=== PATIENT | male | born 1985 | race Caucasian/White ===

== ENCOUNTER → 2019-03-18 13:38 | Outpatient (CLI) | payer BC, SELFPAY ==
--- NOTE | ~2019-03-18 | CT_ITS ---
EXAMINATION: CT abdomen pelvis wo con EXAM DATE: 03/18/2019 13:56 INDICATION: Right lower quadrant pain. TECHNIQUE: Spiral CT of the abdomen and pelvis was performed without contrast. Axial, coronal and s agittal images were reviewed. The dose-length product (DLP) for this examination was 447.82 mGy-cm. The exposure was tailored according to patient size (auto mA exposure control), and iterative recons truction (ASIR) was used as additional dose reduction technique. There is no prior study for compari son. FINDINGS: The liver, spleen, adrenal glands and pancreas are unremarkable. There are cholecystectomy clips. There is no nephrolithiasis or hydronephrosis. There are numerous bilateral renal cysts, pat ient may have autosomal dominant polycystic kidney disease. The prostate is unremarkable. The bladd er is unremarkable. There is no retroperitoneal or pelvic lymphadenopathy. The appendix is normal. There is moderate-sized gastroesophageal hiatal hernia. There is expected a mount of colonic stool. No free intraperitoneal gas. The heart is normal in size. There are no p ericardial or pleural effusions. The lung bases are unremarkable. The bones are unremarkable. IMPRESSION: 1. Moderate colonic stool. 2. Polycystic kidney suspicious for autosomal dominant polycystic kidney disease. Reviewed, dictated and finalized at location B. [employer]ACH[employer] IMPRESSION: 1. Moderate colonic stool. 2. Polycystic kidney suspicious for autosomal dominant polycystic kidney disea se.
== END ==
PROVIDERS: Visit Provider Surgery
DX: R10.31 Right lower quadrant pain (principal); R10.32 Left lower quadrant pain
CPT/HCPCS: 74176

== ENCOUNTER 2019-07-05 03:53 | Emergency (ER) | payer OTHER, SELFPAY ==
--- NOTE | ~2019-07-05 | CT_ITS ---
EXAMINATION: CT abdomen pelvis wo con DATE: 07/05/2019 04:39 INDICATION: Abdominal pain TECHNIQUE: Computed tomography (CT) of the abdomen and pelvis was performed without intravenous contr ast. Automated exposure control and iterative reconstruction technique were employed. The dose-length product was 293.56 mGy-cm. COMPARISON: 03/18/2019 and 10/24/2015 FINDINGS: Mild chronic scarring the right middle lobe adjacent to a few old rib fracture deformities. Likely be nign chronic 6 mm pleural-based nodule at the posterolateral right lower lobe without significant karel nge since 2016. Heart size is normal. No pericardial or pleural effusion. Cholecystectomy clips the g allbladder fossa. Liver, spleen, pancreas and bilateral adrenal glands are normal. No significant karel nge in numerous bilateral renal cysts, several proteinaceous/hemorrhagic with increased attenuation l ikely related to autosomal dominant polycystic kidney disease. There are a few small stones measuring up to 2-3 mm in both kidneys, 4 on the right and one on the left.. No stones seen along the course o f the ureters. No hydronephrosis. Bowels including the appendix are normal. Bladder is normal. No jarad e intraperitoneal gas or fluid. No pathologically enlarged abdominal or pelvic lymphadenopathy. Mild lumbar levocurvature. Bones are otherwise unremarkable. IMPRESSION: 1. Multiple bilateral renal cysts including a proteinaceous/hemorrhagic cyst consistent with autosoma l dominant polycystic kidney disease. 2. A few small bilateral nonobstructing renal calculi. Reviewed, dictated and finalized at location A. IMPRESSION: 1. Multiple bilateral renal cysts including a proteinaceous/hemorrhagic cyst co nsistent with autosomal dominant polycystic kidney disease. 2. A few small bilateral nonobstructing renal calculi.
[2019-07-05 04:02] VITALS: BP 159/93; PULSE 83; RESP 18; O2SAT 97
--- NOTE | 2019-07-05 04:03 | ED.ABDPAIN ---
HPI - Abdominal Pain General Chief Complaint: Abdominal Pain Stated Complaint: Abdoninal Pain Time Seen by Provider: 07/05/19 03:56 Source: patient Mode of arrival: ambulatory Limitations: no limitations History of Present Illness HPI narrative: This is a 34-year-old male presents the emergency department with some abdominal pain suprapubic with some flank pain left greater than right, with no nausea vomiting no fever chills no diarrhea constipation. The patient has seen surgeon for groin strain, and has a history of kidney stones. Currently there is no shortness of breath no chest pain no hematuria. Also in his past medical history has a history of drug addiction in remission, history of polycystic kidney disease and hepatitis-C. MD elicited complaint: abdominal pain and flank pain Pertinent past history: none Onset (ago): day(s) Pain Consistency: intermittent Location: L flank and suprapubic Severity: moderate Pain scale (0-10): 6 Quality: dull Radiation: LLQ Migration to: suprapubic and L flank Exacerbating factors: nothing Relieving factors: nothing Associated symptoms: denies other symptoms Related Data Home Medications Medication Instructions Recorded Confirmed armodafinil [Nuvigil] 200 mg PO DAILY 01/18/19 07/05/19 buprenorphine-naloxone [Suboxone] 8 film BUCCAL BID 01/18/19 07/05/19 clonidine HCl 0.1 mg PO DAILY 01/18/19 07/05/19 hydroxyzine pamoate 25 mg PO DAILY 01/18/19 07/05/19 lisinopril 40 mg PO DAILY 01/18/19 07/05/19 metoprolol tartrate 25 mg PO DAILY 01/18/19 07/05/19 prazosin 1 mg PO DAILY 01/18/19 07/05/19 testosterone cypionate 100 mg SUBCUT WEEKLY 01/18/19 07/05/19 Allergies Allergy/AdvReac Type Severity Reaction Status Date / Time tramadol Allergy seizure Verified 03/03/19 13:47 Review of Systems Review of Systems: All systems reviewed & are unremarkable except as noted in HPI and below PMFSH Past Medical History Medical History Drug addiction in remission Hepatitis C History of kidney stones HTN (hypertension) Pectus excavatum Polycystic kidney disease Surgical History Surgical History Hx laparoscopic cholecystectomy No history of previous surgery Family History Family History Father , father of septic complications of bowel rupture No problems noted. Social History Social History Smoking packs per day: 0.5 Smoking cigarettes per day: 10.0 Years smoked: 12 Smoking pack-years: 6.00 Substance use: former Other substance usage details: Angel used to use intravenous heroin. This is how he got his hepatitis Last use: Current loose on Suboxone. Never got treatment for hepatitis Exam Const: General: no acute distress and alert Orientation/consciousness: patient oriented x3 HENMT: Head: normal to inspection Eyes: Conjunctivae: conjunctivae normal Pupils: Equal, round and reactive pupils present EOM: EOMs intact bilaterally Neck: Neck: normal visual inspection and no lymphadenopathy Chest: Chest palpation & inspection: normal inspection of the chest Resp: Effort & Inspection: normal respiratory effort Auscultation: clear to auscultation bilaterally Cardio: Rate: regular rate Rhythm: regular rhythm GI: GI Palp: Yes Tenderness to palpation present (GI) ( Suprapubic area) Percussion: Yes normal to percussion Auscultation: normal bowel sounds Urinary Catheter: Urinary Catheter: urine cloudy and urine dark Back/Spine/Pelvis: Back: CVA tenderness Skin: General skin exam: normal color Rashes: no rashes Neuro: General: patient oriented x3, moves all extremities, no meningeal signs and no focal motor deficits Extrem: General: normal to inspection Psych: Mental Status: mental status grossly normal Cours
[2019-07-05] MEDS: SODIUM CHLORIDE 0.9% IV 1,000 ML 999 ML IV CONT (04:20)
[2019-07-05] MEDS: KETOROLAC 30 MG/ML VIAL (*BKC) IV PUSH (04:20)
[2019-07-05 04:21] LABS: Hematocrit 43.6 % (40.0-54.0); Hemoglobin 14.9 g/dL (14.0-18.0); Mean Corpuscular HGB Conc 34.2 g/dL (32.0-36.0); Mean Corpuscular Hemoglobin 29.6 pg (27.0-31.0); Mean Corpuscular Volume 86.5 fL (78.0-102.0); Mean Platelet Volume 9.3 fl (8.7-11.0); Platelet Count Result 223 K/mm3 (150-420); Red Blood Count 5.04 M/mm3 (4.70-6.10); Red Cell Distribution Width 13.1 % (11.6-14.4); White Blood Count 7.7 K/mm3 (4.8-10.8)
[2019-07-05 04:22] LABS: Add Urine Microscopic? NO; Appearance Urine Clear (Clear); Bilirubin Urine Negative (Negative); Blood Urine Negative (Negative); Color Urine Yellow (Yellow); Glucose Urine UA Negative (Negative); Ketones Urine Negative (Negative); Leukocyte Esterase Ur Negative (Negative); Nitrate Urine Negative (Negative); Protein Urine Negative (Negative); Specific Grav Ur >= 1.030 (1.010-1.020); Urobilinogen Urine 0.2 mg/dL (0.2-1.0); pH Urine 5.5 (5.0-8.0)
[2019-07-05 04:35] LABS: Alanine Aminotransferase 84 U/L (16-63); Albumin Level 4.2 g/dL (3.4-5.0); Alkaline Phosphatase 65 U/L (46-116); Anion Gap 14.6 mmol/L (7-16); Aspartate Amino Transferase 46 U/L (15-37); Bilirubin,Total 0.8 mg/dL (0.00-1.00); Blood Urea Nitrogen 21 mg/dL (7-18); Calcium 8.8 mg/dL (8.5-10.1); Carbon Dioxide 27 mmol/L (21-32); Chloride 106 mmol/L (98-108); Estimated CRCL calculation 101 ml/min; Estimated Glomerular Filt Rate > 60; Glucose 71 mg/dL (70-99); Osmolality Calculated 299 mOsm/kg (285-295); Potassium 3.6 mmol/L (3.5-5.1); Sodium 144 mmol/L (136-145); Total Protein 7.5 g/dL (6.4-8.2)
[2019-07-05 05:01] VITALS: BP 132/87; PULSE 82; RESP 18; TEMP 36.8; O2SAT 99
[2019-07-05 05:19] VITALS: BP 139/86; PULSE 80; RESP 18; TEMP 36.7; O2SAT 98
== END 2019-07-05 05:24 | disposition home or self-care (01) ==
PROVIDERS: Emergency Provider Emergency Medicine; PCP Nurse Practitioner
DX: R10.32 Left lower quadrant pain (principal); N20.0 Calculus of kidney; K59.00 Constipation, unspecified
CPT/HCPCS: 36415; 74176; 80053; 81003; 85027; 96361; 96374; 99283; 99284; J1885; J7030

== ENCOUNTER 2023-03-30 23:00 | Emergency (ER) | payer OTHER, BC, SELFPAY ==
--- NOTE | ~2023-03-30 | XR_ITS ---
Right wrist Technique: PA, oblique, lateral, and ulnar deviation views were obtained. Clinical History: Pain Findings: No acute fracture or dislocation is seen. Osseous alignment is anatomic. Joint spaces are p reserved. Soft tissues are unremarkable. Impression: Unremarkable right wrist radiographs. Reviewed, dictated and finalized at location . [employer] INTER[employer] Impression: Unremarkable right wrist radiographs.
[2023-03-30 23:00] VITALS: BP 174/98; PULSE 79; RESP 20; TEMP 37.4; O2SAT 95
--- NOTE | 2023-03-31 00:09 | ED.GENADULT ---
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 No traumatic event. Pain shoots up the wrist. Intact ROM. Related Data Home Medications Medication Instructions Recorded Confirmed armodafinil 200 mg tablet (Nuvigil) 200 mg PO DAILY 01/18/19 03/30/23 buprenorphine 8 mg-naloxone 2 mg 8 film buccal BID 01/18/19 03/30/23 sublingual film (Suboxone) clonidine HCl 0.1 mg tablet 0.1 mg PO DAILY 01/18/19 03/30/23 hydroxyzine pamoate 50 mg capsule 25 mg PO DAILY 01/18/19 03/30/23 lisinopril 40 mg tablet 40 mg PO DAILY 01/18/19 03/30/23 metoprolol tartrate 25 mg tablet 25 mg PO DAILY 01/18/19 03/30/23 prazosin 1 mg capsule 1 mg PO DAILY 01/18/19 03/30/23 testosterone cypionate 200 mg/mL 100 mg subcut WEEKLY 01/18/19 03/30/23 intramuscular oil Allergies Allergy/AdvReac Type Severity Reaction Status Date / Time tramadol Allergy seizure Verified 08/12/19 10:41 Review of Systems Review of Systems: All systems reviewed & are unremarkable except as noted in HPI and below Constitutional: Constitutional: Denies chills and Denies fever(s) Musculoskeletal: Musculoskeletal: Denies back pain, Denies myalgias, Reports arthralgias and Reports joint swelling [facility] Past Medical History Medical History Drug addiction in remission Hepatitis C History of kidney stones HTN (hypertension) Lower abdominal pain Pectus excavatum Polycystic kidney disease Surgical History Surgical History Hx laparoscopic cholecystectomy No history of previous surgery Family History Family History Father , father of septic complications of bowel rupture No problems noted. Social History Social History Smoking packs per day: 0.5 Smoking cigarettes per day: 10.0 Years smoked: 12 Smoking pack-years: 6.00 Alcohol use details: rarely drinks alcohol Substance use: former Other substance usage details: Angel used to use intravenous heroin. This is how he got his hepatitis Last use: Current loose on Suboxone. Never got treatment for hepatitis Exam Const: General: healthy appearing and no acute distress Nutritional Appearance: well nourished HENMT: Head: normal to inspection Eyes: Conjunctivae: conjunctivae normal Cardio: Rate: regular rate Skin: General skin exam: normal color, no jaundice and no pallor Neuro: General: patient oriented x3, moves all extremities and no focal motor deficits Gait exam (Neuro): Normal gait present Extrem: General: no clubbing, cyanosis or edema Other: cracking of right wrist and base of thumb, pain with ROM but still intact, no overlying rubor or calor. Course Vital Signs Vital signs: Vital Signs Temperature 37.4 C 03/30/23 23:00 Pulse Rate 79 03/30/23 23:00 Respiratory Rate 20 03/30/23 23:00 Blood Pressure 174/98 H 03/30/23 23:00 Pulse Oximetry 95 03/30/23 23:00 Oxygen Delivery Room Air 03/30/23 23:00 Temperature 37.4 C 03/30/23 23:00 Pulse Rate 79 03/30/23 23:00 Respiratory Rate 20 03/30/23 23:00 Blood Pressure 174/98 H 03/30/23 23:00 Pulse Oximetry 95 03/30/23 23:00 Oxygen Delivery Room Air 03/30/23 23:00 Medical Decision Making [facility] Narrative Medical decision making narrative: atraumatic wrist pain and swelling DDx likely tenosynovitis, unlikely gout, fracture, arthritis. Vital Signs Vital Signs: Vital Signs Temperature 37.4 C 03/30/23 23:00 Pulse Rate 79 03/30/23 23:00 Respiratory Rate 20 03/30/23 23:00 Blood Pressure 174/
[2023-03-31] MEDS: KETOROLAC (*BKC) 60 MG/2 ML VIAL IM (00:21)
== END 2023-03-31 00:30 | disposition home or self-care (01) ==
PROVIDERS: Emergency Provider Emergency Medicine; PCP Nurse Practitioner
DX: M65.9 Synovitis and tenosynovitis, unspecified (principal); I10 Essential (primary) hypertension; F17.210 Nicotine dependence, cigarettes, uncomplicated; Z79.899 Other long term (current) drug therapy; X58.XXXA Exposure to other specified factors, initial encounter; Y92.59 Other trade areas as the place of occurrence of the external cause; Y99.0 Civilian activity done for income or pay
CPT/HCPCS: 73100; 96372; 99284; J1100; J1885

== ENCOUNTER 2023-12-24 21:29 | Inpatient (IN) | payer OTHER, SELFPAY ==
--- NOTE | ~2023-12-24 | CT_ITS ---
EXAMINATION: CT UE RT w con DATE: 12/25/2023 10:03 INDICATION: Right hand and wrist pain and swelling and erythema. Tendon release surgery one month ago . TECHNIQUE: Computed tomography (CT) of the right wrist and forearm was performed with 100 mL Omnipaqu e 350 intravenous contrast. Automated exposure control and iterative reconstruction technique were em ployed. The dose-length product was 904.77 mGy-cm. COMPARISON: Right wrist radiographs 03/30/2023 FINDINGS: Alignment is normal. No fracture. Joint spaces are normal. No elbow joint effusion. There i s edema of the dorsum of the hand and forearm. There is tenosynovitis in the first-third extensor com partments of the wrist. There is a rim-enhancing fluid collection along the dorsal aspect of extensor carpi radialis brevis and extensor carpi radialis longus in the distal third of the forearm measurin g 2.7 x 0.5 x 7.3 cm. IMPRESSION: 1. Tenosynovitis in the first-third extensor compartments of the wrist. 2. Rim-enhancing fluid collection along the dorsal distal aspect of the extensor carpi radialis brevi s and extensor carpi radialis longus muscles and myotendinous junctions, consistent with subacute hem atoma versus abscess. Reviewed, dictated and finalized at location A. [employer] IMPRESSION: 1. Tenosynovitis in the first-third extensor compartments of the wrist. 2. Rim-enhancing fluid collection along the dorsal distal aspect of the extenso r carpi radialis brevis and extensor carpi radialis longus muscles and myotendi nous junctions, consistent with subacute hematoma versus abscess.
[2023-12-24 21:33] VITALS: BP 172/91; PULSE 93; RESP 18; TEMP 36.7; O2SAT 100
--- NOTE | 2023-12-24 21:52 | ED.WOUNDLAC ---
HPI - Wound/Laceration General Chief Complaint: Wound/Laceration Stated Complaint: Swollen R hand Time Seen by Provider: 12/24/23 21:35 Source: patient and family Mode of arrival: ambulatory Limitations: no limitations History of Present Illness HPI narrative: this is a 38-year-old male presents with redness swelling of the right hand after he had tendon release surgery approximately 1 month ago did see his surgeon yesterday and tried to drain the area of the right forearm which other was nothing to drain, there is no fluctuance the patient does have some redness swelling erythema and tenderness of the right forearm and hand with a brisk strong radial pulse on the right patient is afebrile. Patient's surgeon performed x-ray which showed no osteomyelitis. Patient was advised by his surgeon that if symptoms persists to present for IV antibiotics. Onset (ago): week(s) Location: other Extremity Location: Right: forearm ( area of erythema and swelling) Place: home Related Data Home Medications Medication Instructions Recorded Confirmed testosterone cypionate 200 mg/mL 200 mg subcut [id number] 01/18/19 12/24/23 intramuscular oil buprenorphine 8.6 mg-naloxone 2.1 1 tablet sublingual DAILY 12/24/23 12/24/23 mg sublingual tablet (Zubsolv) cephalexin 500 mg capsule 500 mg PO QID 12/24/23 12/24/23 hydroxyzine pamoate 25 mg capsule 25 mg PO HS 12/24/23 12/24/23 lisinopril 20 1 tablet PO BID 12/24/23 12/24/23 mg-hydrochlorothiazide 25 mg tablet metoprolol tartrate 25 mg tablet 25 mg PO BID 12/24/23 12/24/23 prazosin 2 mg capsule 2 mg PO HS 12/24/23 12/24/23 sulfamethoxazole 800 1 tablet PO Q12H 12/24/23 12/24/23 mg-trimethoprim 160 mg tablet Allergies Allergy/AdvReac Type Severity Reaction Status Date / Time tramadol Allergy seizure Verified 08/12/19 10:41 Review of Systems Review of Systems: All systems reviewed & are unremarkable except as noted in HPI and below PMFSH Past Medical History Medical History Drug addiction in remission Hepatitis C History of kidney stones HTN (hypertension) Lower abdominal pain Pectus excavatum Polycystic kidney disease Surgical History Surgical History Hx laparoscopic cholecystectomy No history of previous surgery Family History Family History Father , father of septic complications of bowel rupture No problems noted. Social History Social History Smoking packs per day: 0.5 Smoking cigarettes per day: 10.0 Years smoked: 12 Smoking pack-years: 6.00 Alcohol use details: rarely drinks alcohol Substance use: former Other substance usage details: Angel used to use intravenous heroin. This is how he got his hepatitis Last use: Current loose on Suboxone. Never got treatment for hepatitis Exam Const: General: healthy appearing, no acute distress and alert Nutritional Appearance: well nourished Orientation/consciousness: patient oriented x3 Chest: Chest palpation & inspection: normal inspection of the chest Resp: Effort & Inspection: normal respiratory effort Auscultation: clear to auscultation bilaterally Cardio: Rate: regular rate Rhythm: regular rhythm GI: GI Palp: Yes Soft to palpation Auscultation: normal bowel sounds Skin: Other: Nonfluctuant area of his right forearm surgical site appears tender red erythematous and has a brisk strong radial pulse on the right. Neuro: General: patient oriented x3 and moves all extremities Course Course Emergency Course: IV with IV fluids started patient given a dose of 600mg IV clindamycin blood cultures drawn. CBC CMP and lactic acid performed and reviewed will admit patient under observation with IV antibiotics. Vital Signs Vital signs: Vital Signs Temperature 36.7 C 12/24/23 21:33 Pulse Rate 93 12/24/23 21:33 Respiratory Rate 18 12/24/23 21:33 Blood Pressure 172/91 H 12/24/23 21:33 Pulse Oximetry 100 12/24/23 21:33 Oxygen Delivery Room Air 12/24/23 21:33 Temperature 36.7 C 12/24/23 21:33 Pulse Rate 93 12/24/23 21:33 Respiratory Rate 18 12/24/23 21:33 Blood Pressure 172/91 H 12/24/23 21:33 Pulse Oximetry 100 12/24/23 21:33 Oxygen Delivery Room Air 12/24/23 21:33 Critical Care Time Critical Care Time Critical Care Time: No Discharge Plan Discharge Clinical Impression: Cellulitis and abscess of hand Patient Disposition: Acute Care Hospital [facility] Condition: Guarded Prognosis Prescriptions: No Action testosterone cypionate 200 mg/mL oil 200 mg subcut [id number] sulfamethoxazole-trimethoprim [Sulfamethoprim DS] 800-160 mg Tablet 1 tablet PO Q12H cephalexin 500 mg Capsule 500 mg PO QID lisinopril-hydrochlorothiazide 20-25 mg Tablet 1 tablet PO BID prazosin 2 mg Capsule 2 mg PO HS hydroxyzine pamoate 25 mg Capsule 25 mg PO HS metoprolol tartrate 25 mg Tablet 25 mg PO BID Zubsolv 8.6-2.1 mg Tablet, Sublingual 1 tablet SUBLINGUAL DAILY Follow-up/Referrals: Brielle,Jessica Skaggs, MAILING SPECIALIST [Primary Care Provider] - Time of Disposition: 22:30
[2023-12-24 22:06] LABS: Basophils Absolute Auto 0.04 K/mm3 (0.00-0.10); Basophils Percent Auto 0.5 % (0.0-1.0); Eosinophils Absolute Auto 0.22 K/mm3 (0.02-0.50); Eosinophils Percent Auto 2.5 % (1.0-6.0); Hematocrit 40.3 % (40.0-54.0); Hemoglobin 14.3 g/dL (14.0-18.0); Immature Granulocyte Absolute 0.02 K/mm3 (0.00-0.00); Immature Granulocyte Percent A 0.2 % (0.0-0.0); Lymphocytes Absolute Auto 2.07 K/mm3 (1.10-4.50); Lymphocytes Percent Auto 23.8 % (18.0-42.0); Mean Corpuscular HGB Conc 35.5 g/dL (32-36); Mean Corpuscular Hemoglobin 29.6 pg (27.0-31.0); Mean Corpuscular Volume 83.4 fL (78.0-102.0); Mean Platelet Volume 9.6 fl (8.7-11.0); Monocytes Absolute Auto 0.71 K/mm3 (0.10-0.90); Monocytes Percent Auto 8.2 % (2.0-11.0); Neutrophils Absolute Auto 5.64 K/mm3 (1.70-7.20); Neutrophils Percent Auto 64.8 % (50.0-70.0); Platelet Count Result 164 K/mm3 (150-420); Red Blood Count 4.83 M/mm3 (4.70-6.10); Red Cell Distribution Width 12.2 % (11.6-14.4); White Blood Count 8.7 K/mm3 (4.8-10.8)
[2023-12-24] MEDS: SODIUM CHLORIDE 0.9% IV 1,000 ML 999 ML IV CONT (22:10)
[2023-12-24] MEDS: KETOROLAC 30 MG/ML VIAL (*BKC) IV PUSH (22:12)
[2023-12-24] MEDS: CLINDAMYCIN 600 MG/D5W 50 ML 600 MG/50 ML PIGGYBACK 100 MG IVPB (22:12)
[2023-12-24 22:15] LABS: Alanine Aminotransferase 52 U/L (16-63); Albumin Level 3.5 g/dL (3.4-5.0); Alkaline Phosphatase 50 U/L (46-116); Anion Gap 13 mmol/L (4-12); Aspartate Amino Transferase 21 U/L (15-37); Bilirubin,Total 1.2 mg/dL (0.00-1.00); Blood Urea Nitrogen 28 mg/dL (7-18); Calcium 8.5 mg/dL (8.5-10.1); Carbon Dioxide 26 mmol/L (21-32); Chloride 103 mmol/L (98-108); Estimated CRCL calculation 53 ml/min; Estimated Glomerular Filt Rate 45; Glucose 137 mg/dL (70-99); Osmolality Calculated 301 mOsm/kg (285-295); Potassium 3.4 mmol/L (3.5-5.1); Sodium 142 mmol/L (136-145); Total Protein 6.9 g/dL (6.4-8.2)
[2023-12-24 22:18] LABS: Lactic Acid Reflex 0.9 mmol/L (0.4-2.0)
--- NOTE | 2023-12-24 22:30 | PC.NURSE ---
Pt resting, fluids infusing. ERP Dr pearson in to speak w/ pt about admission. Pt agreeable to admit. Extremity elevated on pillow, VSS.
[2023-12-24 22:33] VITALS: BP 120/67; PULSE 81; RESP 18; TEMP 37; O2SAT 99
--- NOTE | 2023-12-24 22:40 | PC.NURSE ---
room assignment received from Anne GAMEZ. room 210
[2023-12-24] MEDS: SODIUM CHLORIDE 0.9% IV 1,000 ML 100 ML IV CONT (22:48)
[2023-12-24] MEDS: TETANUS,DIPHTHERIA,AC PERTUSSIS ADULT 0.5 ML (ADACEL) IM (22:48)
[2023-12-24 23:00] VITALS: BMI 27.1
--- NOTE | 2023-12-24 23:11 | PC.NURSE ---
Pt c/o hand is hot and feels like on fire at this time. ERP ordered and okayed ice pack to hand and extremity elevated and ice applied.
[2023-12-24 23:22] VITALS: BP 124/75; PULSE 74; RESP 20; TEMP 37; O2SAT 95
[2023-12-24] MEDS: CEPHALEXIN 500 MG CAPSULE PO (23:54)
[2023-12-24] MEDS: NICOTINE (*PBKC) 21 MG PATCH 1 PATCH TRANSDERM (23:54)
--- NOTE | 2023-12-24 23:58 | ADMGEN ---
This patient, Angel Mcclellan, was admitted to 2nd Floor Room 210-1. Patient/family oriented to hospital policies and general routines including ID bracelet, bed and alarms, visiting hours, pain management, procedures, bathroom and other care routines, personal items, smoking policy, room service/diet, and visiting hours. Information on how to activate the Rapid Response Team has been discussed. Patient/Family are encouraged to report perceived risks to care and to ask questions if they do not understand what they are told or what they should do.
[2023-12-25] VITALS: BP 127/85; PULSE 75; RESP 16; TEMP 36.9; O2SAT 94
[2023-12-25] MEDS: ONDANSETRON INJ 4 MG/2 ML VIAL IV PUSH (05:21)
--- NOTE | 2023-12-25 05:27 | PC.NURSE ---
Pt c/o nausea and upset stomach. Pt given Zofran 4mg IVP to relieve c/o nausea and upset stomach.
[2023-12-25 05:47] LABS: Basophils Absolute Auto 0.06 K/mm3 (0.00-0.10); Basophils Percent Auto 0.7 % (0.0-1.0); Eosinophils Percent Auto 4.7 % (1.0-6.0); Hematocrit 38.1 % (40.0-54.0); Hemoglobin 13.2 g/dL (14.0-18.0); Immature Granulocyte Absolute 0.03 K/mm3 (0.00-0.00); Immature Granulocyte Percent A 0.4 % (0.0-0.0); Lymphocytes Absolute Auto 2.23 K/mm3 (1.10-4.50); Lymphocytes Percent Auto 26.3 % (18.0-42.0); Mean Corpuscular HGB Conc 34.6 g/dL (32-36); Mean Corpuscular Hemoglobin 29.4 pg (27.0-31.0); Mean Corpuscular Volume 84.9 fL (78.0-102.0); Mean Platelet Volume 9.4 fl (8.7-11.0); Monocytes Absolute Auto 0.82 K/mm3 (0.10-0.90); Monocytes Percent Auto 9.7 % (2.0-11.0); Neutrophils Absolute Auto 4.94 K/mm3 (1.70-7.20); Neutrophils Percent Auto 58.2 % (50.0-70.0); Platelet Count Result 142 K/mm3 (150-420); Red Blood Count 4.49 M/mm3 (4.70-6.10); Red Cell Distribution Width 12.4 % (11.6-14.4); White Blood Count 8.5 K/mm3 (4.8-10.8)
[2023-12-25] MEDS: KETOROLAC 15 MG/ML VIAL (*BKC) IV PUSH ×4 (05:56→21:00)
[2023-12-25 06:00] VITALS: BP 130/80; PULSE 75; RESP 16; TEMP 36.9; O2SAT 95
--- NOTE | 2023-12-25 06:00 | PC.NURSE ---
Pt c/o pain in his right hand and requested pain medication. Pt given toredol 15 mg IVP to relieve pain.
[2023-12-25 06:05] LABS: Alanine Aminotransferase 41 U/L (16-63); Albumin Level 2.9 g/dL (3.4-5.0); Alkaline Phosphatase 43 U/L (46-116); Anion Gap 9 mmol/L (4-12); Aspartate Amino Transferase 19 U/L (15-37); Blood Urea Nitrogen 24 mg/dL (7-18); Calcium 7.7 mg/dL (8.5-10.1); Carbon Dioxide 25 mmol/L (21-32); Chloride 106 mmol/L (98-108); Estimated CRCL calculation 63 ml/min; Estimated Glomerular Filt Rate 57; Glucose 84 mg/dL (70-99); Osmolality Calculated 293 mOsm/kg (285-295); Potassium 3.7 mmol/L (3.5-5.1); Sodium 140 mmol/L (136-145); Total Protein 5.9 g/dL (6.4-8.2)
[2023-12-25] MEDS: CEPHALEXIN 500 MG CAPSULE PO (06:16)
[2023-12-25] MEDS: CLINDAMYCIN 600 MG/D5W 50 ML 600 MG/50 ML PIGGYBACK 100 MG IVPB ×3 (06:16→22:11)
[2023-12-25] MEDS: MAG HYDROX/AL HYDROX/SIMETH 30 ML UDC PO (06:24)
[2023-12-25 07:55] VITALS: BP 148/83; PULSE 77; RESP 16; TEMP 36.8; O2SAT 98
[2023-12-25 08:28] VITALS: PULSE 77
[2023-12-25] MEDS: hydroCHLOROthiazide 25 MG TABLET PO ×2 (08:28→21:00)
[2023-12-25] MEDS: lisinopriL 20 MG TABLET PO ×2 (08:28→20:59)
[2023-12-25] MEDS: METOPROLOL TARTRATE 25 MG TABLET PO ×2 (08:28→20:59)
[2023-12-25] MEDS: NICOTINE (*PBKC) 21 MG PATCH 1 PATCH TRANSDERM (08:29)
[2023-12-25] MEDS: SODIUM CHLORIDE 0.9% IV 1,000 ML 100 ML IV CONT ×2 (08:29→20:12)
[2023-12-25 09:29] LABS: CRP 4.7 mg/dL (0.0-0.9)
[2023-12-25 09:38] LABS: MRSA (PCR) NOT DETECTED (NOT DETECTE)
[2023-12-25 10:13] LABS: Erythrocyte Sedimentation Rate 10 mm/hr (0-15)
--- NOTE | 2023-12-25 13:17 | P.HP_ITS ---
H&P: HPI History of Present Illness Date/Time: 12/25/23 13:17 Chief Complaint: Rt upper extremity pain/swelling/redness Narrative: Patient is a 38-year old male who presented to the ED with complaints of worseni ng pain, swelling, and redness to his right upper extremity after recent surgical repair for tendon release surgery. He had been seen by his surgeon Dr. Starkey 2 days prior with attempt to aspirate the area as reported there was no drainable abscess at that time. Patient was told if symptoms did not improve to go to the emergency department for IV ABX. Patient came to the ED 2 days after with worsening swelling, erythema, and pain to the RUE. Patient denied any CP, SOB, N/V, fever or chills. In the ED he had unremarkable labs no leukocytosis and vitals stable. He was admitted for treatment with IV antibiotics. The ED started patient on clindymyocin IV and he had mild improvement to his erythema but continued swelling. Neurovascular intake on assessment. Following morning I ordered a CT with contrast for further evaluation that did show enosynovitis in the first-third extensor compartments of the wrist.and Rim- enhancing fluid collection along the dorsal distal aspect of the extensor carpi radialis brevis and extensor carpi radialis longus muscles and myotendinous junctions, consistent with subacute hematoma versus abscess. I did speak with his surgeon nurse at the [facility] with the results they were able to tell me his culture came back with MSSA. Dr. Starkey requested we continue with IV antibiotics and if no improvement to call for follow-up and possible need for I&D. Review of Systems Review of Systems: All systems reviewed & are unremarkable except as noted in HPI and below PMFSH Past Medical History Medical History Drug addiction in remission Hepatitis C History of kidney stones HTN (hypertension) Lower abdominal pain Pectus excavatum Polycystic kidney disease Surgical History Surgical History Hx laparoscopic cholecystectomy No history of previous surgery Family History Family History Father , father of septic complications of bowel rupture No problems noted. 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 This is how he got his hepatitis Last use: 10 years ago Do You Feel Safe in your Home?: Yes Lack of Transportation: No Lack of Food: Never True Current Housing: I Have Housing Concerned About Future Housing: No Difficulty Paying Gas/Electric Bills: No Difficulty Paying for Meds: No Currently Unemployed: No Education: Bachelor's Degree Difficulty w/ Childcare or Family Care: No Spiritual care concerns: No Meds Home Medications and Allergies Home Medications Medication Instructions Recorded Confirmed Type testosterone cypionate 200 mg/mL 200 mg subcut [id number] 01/18/19 12/24/23 History intramuscular oil buprenorphine 8.6 mg-naloxone 2.1 1 tablet sublingual DAILY 12/24/23 12/24/23 History mg sublingual tablet (Zubsolv) cephalexin 500 mg capsule 500 mg PO QID 12/24/23 12/24/23 History hydroxyzine pamoate 25 mg capsule 25 mg PO HS 12/24/23 12/24/23 History lisinopril 20 1 tablet PO BID 12/24/23 12/24/23 History mg-hydrochlorothiazide 25 mg tablet metoprolol tartrate 25 mg tablet 25 mg PO BID 12/24/23 12/24/23 History prazosin 2 mg capsule 2 mg PO HS 12/24/23 12/24/23 History sulfamethoxazole 800 1 tablet PO Q12H 12/24/23 12/24/23 History mg-trimethoprim 160 mg tablet Allergies Allergy/AdvReac Type Severity Reaction Status Date / Time tramadol Allergy seizure Verified 08/12/19 10:41 Vital Signs Vital Signs - 24 hr 12/24/23 21:33 12/24/23 22:33 12/24/23 23:22 Temperature 98.0 F 98.6 F 98.6 F Pulse Rate 93 81 74 Respiratory Rate 18 18 20 Blood Pressure 172/91 H 120/67 124/75 Pulse Oximetry 100 99 95 Oxygen Delivery Room Air Room Air Room Air 12/25/23 00:00 12/25/23 06:00 12/25/23 07:55 Temperature 98.5 F 98.5 F 98.2 F Pulse Rate 75 75 77 Respiratory Rate 16 16 16 Blood Pressure 127/85 130/80 148/83 H Pulse Oximetry 94 95 98 Oxygen Delivery Room Air Room Air Room Air 12/25/23 08:28 Temperature Pulse Rate 77 Respiratory Rate Blood Pressure Pulse Oximetry Oxygen Delivery Exam Narrative: * GENERAL: Alert and oriented x 3. No acute distress. * EYES: EOMI. No scleral icterus. PERRLA. * HEENT: Moist mucous membranes. * LUNGS: Clear to auscultation bilaterally. No accessory muscle use. * CARDIOVASCULAR: Regular rate and rhythm. No murmur. No JVD. S1-S2 * ABDOMEN: Soft, non tenderness and non-distended. No palpable masses. * EXTREMITIES: RUE with erythema, edema neurovascular intake * SKIN: No rashes or lesions. Skin warm, dry. * NEUROLOGIC: No focal neurological deficits. CN II-XII grossly intact * PSYCHIATRIC: Appropriate mood and affect. Good judgement and insight. H&P: Results Labs Labs: Short CBC 12/24/23 12/25/23 Range/Units 22:02 05:42 WBC 8.7 8.5 (4.8-10.8) K/mm3 Hgb 14.3 13.2 L (14.0-18.0) g/dL Hct 40.3 38.1 L (40.0-54.0) % Plt Count 164 142 L (150-420) K/mm3 [facility] 12/24/23 12/25/23 22:02 05:42 Sodium 142 140 Potassium 3.4 L 3.7 Chloride 103 106 Carbon Dioxide 26 25 BUN 28 H 24 H Creatinine 1.73 H 1.40 H Glucose 137 H 84 Calcium 8.5 7.7 L Liver Function 12/24/23 12/25/23 Range/Units 22:02 05:42 Total Bilirubin 1.2 H 1.0 (0.00-1.00) mg/dL AST 21 19 (15-37) U/L ALT 52 41 (16-63) U/L Alkaline Phosphatase 50 43 L (46-116) U/L Albumin 3.5 2.9 L (3.4-5.0) g/dL Assessment and Plan Assessment and plan (1) Cellulitis and abscess of hand: Code(s): L03.119 - Cellulitis of unspecified part of limb; L02.519 - Cutaneous abscess of unspecified hand Status: Acute Assessment and Plan: * RUE post surgical repair of tendon release * Blood cultures Pending * Wound culture MSSA per [facility] * Imaging: CT shows: IMPRESSION: 1. Tenosynovitis in the first-third extensor compartments of the wrist. 2. Rim-enhancing fluid collection along the dorsal distal aspect of the extensor carpi radialis brevis and extensor carpi radialis longus muscles and myotendinous junctions, consistent with subacute hematoma versus abscess. * Ancef and clindamycin * MRSA negative * Pain control does not want narcotics * consulted his surgeon Dr. Starkey at the [facility] * Will continue with IV ABX if no improvement may need I&D * CRP elevated * Neurovascular checks (2) HTN (hypertension): Code(s): I10 - Essential (primary) hypertension Status: Acute Assessment and Plan: * Stable * resumed home medications (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, in remission Status: Acute Assessment and Plan: * Resumed Zubsolv * Currently requesting no narcotics for pain * been in remission 10 years previous IV drug user (4) Polycystic kidney disease: Code(s): Q61.3 - Polycystic kidney, unspecified Status: Acute Assessment and Plan: * Monitor kidney function * de-escalate ABX for kidney protection * avoid nephrotoxic medications (5) ABEL (acute kidney injury): Code(s): N17.9 - Acute kidney failure, unspecified Status: Acute Assessment and Plan: * Cr 1.73 POA-1.4 12/24 * avoid nephrotoxic medications * pharmacy to dose ABX * monitor renal function (6) Hepatitis C: Qualifiers: Hepatic coma status: without hepatic coma Viral hepatitis chronicity: chronic Qualified Code(s): B18.2 - Chronic viral hepatitis C Code(s): B19.20 - Unspecified viral hepatitis C without hepatic coma Status: Acute Assessment and Plan: * Treated * monitor liver function Plan Code Status: Full code DVT prophylaxis: heparin Disposition: Patient continues admission for cellulitis of RUE will continue with IV ABX spoke with his Surgeon Dr. Starkey at [facility] about CT findings if no improvement with IV ABX may need I&D. Requested update on 12/27. Quality VTE Prophylaxis VTE prophylaxis: pharmacologic ordered Hospitalist MIPS Advance Care Plan I have confirmed that the patient's Advanced Care Plan is present, code status is documented, or surrogate decision maker is listed in patient medical record.: Yes Medication Reconciliation I have utilized all available resources to obtain, update and review the patients current medications (includes all prescriptions, OTC, herbals, cannabis, and nutritional supplements).: Yes The patient is not eligible for med reconciliation; the patient is in a emergent medical situation where delaying treatment would jeopardize the patients health.: No
[2023-12-25] MEDS: IBUPROFEN 600 MG TABLET PO (13:26)
[2023-12-25] MEDS: ceFAZolin 2 GM/NS 50 ML 2 GM/50 ML BAG IVPB ×2 (14:16→21:28)
[2023-12-25 16:45] VITALS: BP 129/84; PULSE 68; RESP 16; TEMP 36.8; O2SAT 98
--- NOTE | 2023-12-25 17:00 | PC.NURSE ---
Patient requested that CT scan be sent to his surgeon Dr. Iglesia Starkey at the [facility]. Spoke with xray, they will push it through to [facility] and brought a disc up for the patient as well.
--- NOTE | 2023-12-25 20:06 | PHAR ---
PATIENT FAMILY BROUGHT FROM HOME ZUBSOLV 8.6MG/2.1MG [facility] [id number] VERIFIED PER DILLON MILLS
--- NOTE | 2023-12-25 20:22 | PC.NURSE ---
pt requesting zubsolv medication. explained ordered for 9am. pt states has not had for 24 hours, takes it 2 x day. wants it now or going home. charge nurse rizwan informed. placing call to hospitalist fashion supervisor.
[2023-12-25 20:59] VITALS: PULSE 66
[2023-12-25] MEDS: PRAZOSIN HCL 1 MG CAPSULE 2 MG PO (20:59)
[2023-12-25] MEDS: hydrOXYzine pamoate 25 MG CAPSULE PO (21:00)
[2023-12-25] MEDS: [UNRECOGNIZED DRUG - OTHER] XX (21:12)
[2023-12-25] MEDS: BUPRENORPHINE NALOXONE XX (21:12)
[2023-12-25] MEDS: HEPARIN SODIUM 5,000 UNITS/ML VIAL 5000 UNITS SUB-Q (21:23)
--- NOTE | 2023-12-25 22:36 | PC.NURSE ---
report to vikram mckinnon. all questions answered
--- NOTE | 2023-12-25 22:50 | PC.NURSE ---
assumed care. report received from shwetha sue
[2023-12-26] VITALS: BP 114/63; PULSE 63; RESP 16; TEMP 36.2; O2SAT 97
--- NOTE | 2023-12-26 00:15 | PC.NURSE ---
patient sleeping as this rn went into room. wakes easily with verbal stimuli. denies any needs at this time. call light in reach.
[2023-12-26] MEDS: SODIUM CHLORIDE 0.9% IV 1,000 ML 100 ML IV CONT ×2 (04:27→14:26)
[2023-12-26] MEDS: ceFAZolin 2 GM/NS 50 ML 2 GM/50 ML BAG IVPB ×3 (05:30→21:02)
[2023-12-26] MEDS: CLINDAMYCIN 600 MG/D5W 50 ML 600 MG/50 ML PIGGYBACK 100 MG IVPB ×3 (06:03→21:25)
[2023-12-26] MEDS: HEPARIN SODIUM 5,000 UNITS/ML VIAL 5000 UNITS SUB-Q ×3 (06:04→21:13)
[2023-12-26] MEDS: KETOROLAC 15 MG/ML VIAL (*BKC) IV PUSH ×3 (06:06→19:18)
[2023-12-26 08:00] VITALS: BP 128/70; PULSE 60; RESP 18; TEMP 36.2; O2SAT 97
[2023-12-26 08:27] VITALS: PULSE 60
[2023-12-26] MEDS: METOPROLOL TARTRATE 25 MG TABLET PO ×2 (08:27→21:05)
[2023-12-26] MEDS: NICOTINE (*PBKC) 21 MG PATCH 1 PATCH TRANSDERM (08:27)
[2023-12-26] MEDS: IBUPROFEN 600 MG TABLET PO ×2 (08:28→16:59)
[2023-12-26] MEDS: hydroCHLOROthiazide 25 MG TABLET PO ×2 (08:28→21:11)
[2023-12-26] MEDS: lisinopriL 20 MG TABLET PO ×2 (08:29→21:05)
[2023-12-26] MEDS: [UNRECOGNIZED DRUG - OTHER] XX ×2 (08:30→17:00)
[2023-12-26] MEDS: BUPRENORPHINE NALOXONE XX ×2 (08:30→17:00)
[2023-12-26 08:35] LABS: Hematocrit 39.8 % (40.0-54.0); Hemoglobin 13.7 g/dL (14.0-18.0); Immature Platelet Fraction Pct 2.1 % (1.0-7.0); Mean Corpuscular HGB Conc 34.4 g/dL (32-36); Mean Corpuscular Hemoglobin 29.2 pg (27.0-31.0); Mean Corpuscular Volume 84.9 fL (78.0-102.0); Mean Platelet Volume 9.2 fl (8.7-11.0); Platelet Count Result 143 K/mm3 (150-420); Red Blood Count 4.69 M/mm3 (4.70-6.10); Red Cell Distribution Width 12.5 % (11.6-14.4); White Blood Count 5.5 K/mm3 (4.8-10.8)
[2023-12-26 08:48] LABS: Alanine Aminotransferase 32 U/L (16-63); Albumin Level 2.9 g/dL (3.4-5.0); Alkaline Phosphatase 42 U/L (46-116); Anion Gap 9 mmol/L (4-12); Aspartate Amino Transferase 14 U/L (15-37); Bilirubin,Total 0.9 mg/dL (0.00-1.00); Blood Urea Nitrogen 13 mg/dL (7-18); Calcium 8.2 mg/dL (8.5-10.1); Carbon Dioxide 26 mmol/L (21-32); Chloride 107 mmol/L (98-108); Estimated CRCL calculation 76 ml/min; Estimated Glomerular Filt Rate > 60; Glucose 86 mg/dL (70-99); Osmolality Calculated 293 mOsm/kg (285-295); Sodium 142 mmol/L (136-145); Total Protein 5.8 g/dL (6.4-8.2)
--- NOTE | 2023-12-26 10:52 | P.PNIM_ITS ---
Progress Note: A&P Assessment and Plan (1) Cellulitis and abscess of hand: Code(s): L03.119 - Cellulitis of unspecified part of limb; L02.519 - Cutaneous abscess of unspecified hand Status: Acute Assessment and Plan: * RUE post surgical repair of tendon release * Blood cultures Pending * Wound culture MSSA per [facility] * Imaging: CT shows: IMPRESSION: 1. Tenosynovitis in the first-third extensor compartments of the wrist. 2. Rim-enhancing fluid collection along the dorsal distal aspect of the extensor carpi radialis brevis and extensor carpi radialis longus muscles and myotendinous junctions, consistent with subacute hematoma versus abscess. * Ancef and clindamycin * MRSA negative * Pain control does not want narcotics * consulted his surgeon Dr. Starkey at the [facility] * Will continue with IV ABX if no improvement may need I&D * CRP elevated * Neurovascular checks 12/26/23: * Blood cultures NGTD * Call Dr Starkey Thursday for update * normal WBC * Afebrile * intermittent in improvement and then worsening of erythema and swelling * elevate hand encourage limited use (2) HTN (hypertension): Code(s): I10 - Essential (primary) hypertension Status: Acute Assessment and Plan: * Stable * resumed home medications (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, in remission Status: Acute Assessment and Plan: * Resumed Zubsolv * Currently requesting no narcotics for pain * been in remission 10 years previous IV drug user (4) Polycystic kidney disease: Code(s): Q61.3 - Polycystic kidney, unspecified Status: Acute Assessment and Plan: * Monitor kidney function * de-escalate ABX for kidney protection * avoid nephrotoxic medications (5) ABEL (acute kidney injury): Code(s): N17.9 - Acute kidney failure, unspecified Status: Acute Assessment and Plan: * Cr 1.73 POA-1.4 12/24 * avoid nephrotoxic medications * pharmacy to dose ABX * monitor renal function (6) Hepatitis C: Qualifiers: Hepatic coma status: without hepatic coma Viral hepatitis chronicity: chronic Qualified Code(s): B18.2 - Chronic viral hepatitis C Code(s): B19.20 - Unspecified viral hepatitis C without hepatic coma Status: Acute Assessment and Plan: * Treated * monitor liver function Plan Code Status: Full code DVT prophylaxis: heparin Disposition: Patient continues admission for cellulitis of RUE will continue with IV ABX spoke with his Surgeon Dr. Starkey at [facility] about CT findings if no improvement with IV ABX may need I&D. Requested update on 12/27. Time Spent With Patient Time with patient: 15 - 25 minutes Subjective Date/time seen: 12/26/23 10:52 Interval history: Patient is a 38-year-old male admitted for right upper extremity cellulitis post surgical repair for tendon release. 12/26/23 patient is still reporting moderate to severe pain in right upper extremity with continued swelling. Patient did show a picture he took last night with worsening swelling and erythema however looks better today. Still no leukocytosis if no improvement to hand by Thursday will likely need transfer to [place] with surgeon for I and D. patient denied fever chills or nausea and vomiting overnight. neurovascularly intact at this time. Review of Systems Review of Systems: All systems reviewed & are unremarkable except as noted in HPI and below Exam Narrative: * GENERAL: Alert and oriented x 3. No acute distress. * EYES: EOMI. No scleral icterus. PERRLA. * HEENT: Moist mucous membranes. * LUNGS: Clear to auscultation bilaterally. No accessory muscle use. * CARDIOVASCULAR: Regular rate and rhythm. No murmur. No JVD. S1-S2 * ABDOMEN: Soft, non tenderness and non-distended. No palpable masses. * EXTREMITIES: RUE with erythema, edema neurovascular intake * SKIN: No rashes or lesions. Skin warm, dry. * NEUROLOGIC: No focal neurological deficits. CN II-XII grossly intact * PSYCHIATRIC: Appropriate mood and affect. Good judgement and insight. Objective Data Vital Signs Vital Signs: Vital Signs - 24 hr 12/25/23 16:45 12/25/23 20:59 12/26/23 00:00 Temperature 98.2 F 97.2 F L Pulse Rate 68 66 63 Respiratory Rate 16 16 Blood Pressure 129/84 114/63 Pulse Oximetry 98 97 Oxygen Delivery Room Air Room Air 12/26/23 08:27 12/26/23 08:00 Temperature 97.1 F L Pulse Rate 60 60 Respiratory Rate 18 Blood Pressure 128/70 Pulse Oximetry 97 Oxygen Delivery Room Air Intake/Output Intake/Output: Intake & Output 12/23/23 12/24/23 12/25/23 12/26/23 23:59 23:59 23:59 23:59 Intake Total 1050 3950 1375 Output Total 3300 1000 Balance 1050 650 375 Meds/Results Medications: Active Medications Generic Name Dose Route Start Last Admin Trade Name Freq PRN Reason Stop Dose Admin Heparin Sodium (Porcine) 5,000 units 12/25/23 22:00 12/26/23 06:04 Heparin Sodium 5,000 Units/Ml Vial SUB-Q 5,000 units Q8HR JUSTA Administration Hydrochlorothiazide 25 mg 12/25/23 09:00 12/26/23 08:28 Hydrochlorothiazide 25 Mg Tablet PO 25 mg Q12HR JUSTA Administration Hydroxyzine Pamoate 25 mg 12/25/23 21:00 12/25/23 21:00 Hydroxyzine Pamoate 25 Mg Capsule PO 25 mg HS JUSTA Administration Sodium Chloride 1,000 mls @ 100 mls/hr 12/24/23 22:35 12/26/23 04:27 Normal Saline Iv IV CONT 100 mls/hr .Q10H JUSTA Administration Clindamycin Phosphate 600 mg in 50 mls @ 100 mls/hr 12/25/23 06:00 12/26/23 06:33 Clindamycin 600 Mg/D5w 50 Ml IVPB Infused Q8HR JUSTA Infusion Cefazolin Sodium 2 gm in 50 mls @ 100 mls/hr 12/25/23 14:00 12/26/23 06:03 Ancef 2 Gm/Ns 50 Ml IVPB Infused Q8H JUSTA Infusion Ibuprofen 600 mg 12/25/23 13:05 12/26/23 08:28 Ibuprofen 600 Mg Tablet PO 600 mg Q6H PRN Administration Pain Rated 1-3 Ketorolac Tromethamine 15 mg 12/24/23 22:33 12/26/23 06:06 Ketorolac 15 Mg/Ml Vial (*Bkc) IV PUSH 15 mg Q6H PRN Administration Pain Rated 4-6 Lisinopril 20 mg 12/25/23 09:00 12/26/23 08:29 Lisinopril 20 Mg Tablet PO 20 mg Q12HR JUSTA Administration Metoprolol Tartrate 25 mg 12/25/23 09:00 12/26/23 08:27 Metoprolol Tartrate 25 Mg Tablet PO 25 mg Q12HR JUSTA Administration Nicotine 1 patch 12/25/23 09:00 12/26/23 08:27 Nicotine (*Pbkc) 21 Mg Patch TRANSDERM 1 patch DAILY JUSTA Administration Non-Formulary Medication 1 tablet 12/25/23 21:00 12/26/23 08:30 Buprenorphine-Naloxone [Zubsolv] XX 01/24/24 20:59 1 tablet Q12HR JUSTA Administration Ondansetron HCl 4 mg 12/24/23 22:33 12/25/23 05:21 Ondansetron Inj 4 Mg/2 Ml Vial IV PUSH 4 mg Q6H PRN Administration Nausea And Vomiting Prazosin HCl 2 mg 12/25/23 21:00 12/25/23 20:59 Prazosin Hcl 1 Mg Capsule PO 2 mg HS JUSTA Administration Radiology Results: ITS Impressions Upper Extremity CT 12/25/23 10:41 IMPRESSION: 1. Tenosynovitis in the first-third extensor compartments of the wrist. 2. Rim-enhancing fluid collection along the dorsal distal aspect of the extensor carpi radialis brevis and extensor carpi radialis longus muscles and myotendinous junctions, consistent with subacute hematoma versus abscess. Labs Labs: Laboratory Results - last 24 hr 12/26/23 08:28 WBC 5.5 RBC 4.69 L Hgb 13.7 L Hct 39.8 L MCV 84.9 MCH 29.2 MCHC 34.4 RDW 12.5 Plt Count 143 L MPV 9.2 % Immature Plt Fraction 2.1 Sodium 142 Potassium 4.0 Chloride 107 Carbon Dioxide 26 Anion Gap 9 BUN 13 Creatinine 1.15 Estim Creat Clear Calc 76 Estimated GFR > 60 Glucose 86 Calculated Osmolality 293 Calcium 8.2 L Total Bilirubin 0.9 AST 14 L ALT 32 Alkaline Phosphatase 42 L Total Protein 5.8 L Albumin 2.9 L Quality VTE Prophylaxis VTE prophylaxis: pharmacologic ordered -Patient's previous records reviewed on admission -ER notes reviewed in detail on admission -discussed all findings and current treatment plan with patient/Family/POA -Consultations reviewed for recommendations -Patient's disposition for safe discharge discussed with employment case manager Dictation performed by [employer] direct speech recognition software, therefore checkout supervisor variants and typographical errors may occur. Hospitalist MIPS Advance Care Plan I have confirmed that the patient's Advanced Care Plan is present, code status is documented, or surrogate decision maker is listed in patient medical record.: Yes Medication Reconciliation I have utilized all available resources to obtain, update and review the patients current medications (includes all prescriptions, OTC, herbals, cannabis, and nutritional supplements).: Yes The patient is not eligible for med reconciliation; the patient is in a emergent medical situation where delaying treatment would jeopardize the patients health.: No
--- NOTE | 2023-12-26 11:29 | PC.NURSE ---
Patient asked to take a shower, however he is on continuous IV. Reptile Farmer gave patient bathing cloths and a shampoo cap, gown changed and bedding changed.
--- NOTE | 2023-12-26 13:16 | PC.NURSE ---
Patient changed from observation status to inpatient.
[2023-12-26 16:00] VITALS: BP 144/91; PULSE 66; RESP 18; TEMP 37.1; O2SAT 97
[2023-12-26] MEDS: CYCLOBENZAPRINE HCL 10 MG TABLET PO (16:59)
[2023-12-26 20:00] VITALS: PULSE 66; RESP 18; O2SAT 97
[2023-12-26 21:05] VITALS: PULSE 66
[2023-12-26] MEDS: PRAZOSIN HCL 1 MG CAPSULE 2 MG PO (21:05)
[2023-12-26] MEDS: hydrOXYzine pamoate 25 MG CAPSULE PO (21:11)
[2023-12-27] VITALS: BP 136/88; PULSE 66; RESP 17; TEMP 36.7; O2SAT 99
[2023-12-27] MEDS: CYCLOBENZAPRINE HCL 10 MG TABLET PO ×3 (04:13→21:06)
[2023-12-27] MEDS: KETOROLAC 15 MG/ML VIAL (*BKC) IV PUSH ×3 (04:13→18:18)
[2023-12-27] MEDS: ceFAZolin 2 GM/NS 50 ML 2 GM/50 ML BAG IVPB ×3 (05:07→21:05)
[2023-12-27] MEDS: HEPARIN SODIUM 5,000 UNITS/ML VIAL 5000 UNITS SUB-Q ×3 (05:07→21:07)
[2023-12-27] MEDS: CLINDAMYCIN 600 MG/D5W 50 ML 600 MG/50 ML PIGGYBACK 100 MG IVPB ×3 (05:35→21:26)
[2023-12-27 07:12] LABS: Hematocrit 39.9 % (40.0-54.0); Hemoglobin 13.6 g/dL (14.0-18.0); Mean Corpuscular HGB Conc 34.1 g/dL (32-36); Mean Corpuscular Hemoglobin 29.1 pg (27.0-31.0); Mean Corpuscular Volume 85.3 fL (78.0-102.0); Mean Platelet Volume 9.4 fl (8.7-11.0); Platelet Count Result 163 K/mm3 (150-420); Red Blood Count 4.68 M/mm3 (4.70-6.10); Red Cell Distribution Width 12.3 % (11.6-14.4); White Blood Count 4.4 K/mm3 (4.8-10.8)
[2023-12-27 07:25] LABS: Alanine Aminotransferase 26 U/L (16-63); Albumin Level 2.7 g/dL (3.4-5.0); Alkaline Phosphatase 40 U/L (46-116); Anion Gap 11 mmol/L (4-12); Aspartate Amino Transferase 16 U/L (15-37); Bilirubin,Total 0.5 mg/dL (0.00-1.00); Blood Urea Nitrogen 12 mg/dL (7-18); Calcium 7.9 mg/dL (8.5-10.1); Carbon Dioxide 25 mmol/L (21-32); Chloride 104 mmol/L (98-108); Estimated CRCL calculation 83 ml/min; Estimated Glomerular Filt Rate > 60; Glucose 123 mg/dL (70-99); Osmolality Calculated 290 mOsm/kg (285-295); Potassium 3.5 mmol/L (3.5-5.1); Sodium 140 mmol/L (136-145); Total Protein 5.8 g/dL (6.4-8.2)
[2023-12-27 08:00] VITALS: BP 123/69; PULSE 61; RESP 16; TEMP 36.4; O2SAT 97
[2023-12-27] MEDS: NICOTINE (*PBKC) 21 MG PATCH 1 PATCH TRANSDERM (08:52)
[2023-12-27] MEDS: IBUPROFEN 600 MG TABLET PO ×2 (08:53→21:06)
[2023-12-27 08:54] VITALS: PULSE 61
[2023-12-27] MEDS: lisinopriL 20 MG TABLET PO ×2 (08:54→21:06)
[2023-12-27] MEDS: METOPROLOL TARTRATE 25 MG TABLET PO ×2 (08:54→21:06)
[2023-12-27] MEDS: hydroCHLOROthiazide 25 MG TABLET PO ×2 (08:54→21:06)
[2023-12-27] MEDS: BUPRENORPHINE NALOXONE 1 EACH XX ×2 (08:55→16:49)
--- NOTE | 2023-12-27 12:00 | P.PNIM_ITS ---
Progress Note: A&P Assessment and Plan (1) Cellulitis and abscess of hand: Code(s): L03.119 - Cellulitis of unspecified part of limb; L02.519 - Cutaneous abscess of unspecified hand Status: Acute Assessment and Plan: * RUE post surgical repair of tendon release * Blood cultures Pending * Wound culture MSSA per [facility] * Imaging: CT shows: IMPRESSION: 1. Tenosynovitis in the first-third extensor compartments of the wrist. 2. Rim-enhancing fluid collection along the dorsal distal aspect of the extensor carpi radialis brevis and extensor carpi radialis longus muscles and myotendinous junctions, consistent with subacute hematoma versus abscess. * Ancef and clindamycin * MRSA negative * Pain control does not want narcotics * consulted his surgeon Dr. 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, in remission Status: Acute Assessment and Plan: * Resumed Zubsolv * Currently requesting no narcotics for pain * been in remission 10 years previous IV drug user (4) Polycystic kidney disease: Code(s): Q61.3 - Polycystic kidney, unspecified Status: Acute Assessment and Plan: * Monitor kidney function * de-escalate ABX for kidney protection * avoid nephrotoxic medications (5) ABEL (acute kidney injury): Code(s): N17.9 - Acute kidney failure, unspecified Status: Acute Assessment and Plan: * Cr 1.73 POA-1.4 12/24 * avoid nephrotoxic medications * pharmacy to dose ABX * monitor renal function (6) Hepatitis C: Qualifiers: Hepatic coma status: without hepatic coma Viral hepatitis chronicity: chronic Qualified Code(s): B18.2 - Chronic viral hepatitis C Code(s): B19.20 - Unspecified viral hepatitis C without hepatic coma Status: Acute Assessment and Plan: * Treated * monitor liver function Plan Code Status: Full code DVT prophylaxis: heparin Disposition: Patient continues admission for cellulitis of RUE will continue with IV ABX spoke with his Surgeon Dr. Starkey at [facility] about CT findings if no improvement with IV ABX may need I&D. Requested update on 12/27. Time Spent With Patient Time with patient: 15 - 25 minutes Subjective Date/time seen: 12/27/23 12:00 Interval history: Patient is a 38-year-old male admitted for right upper extremity cellulitis post surgical repair for tendon release. 12/27/23 Patient continues to have swelling and worse at night including erythema but improves in the morning, still with severe pain and warmth but neurovascular intact. Report chills no fevers and body aches. Updated patient mother with plan call surgeon tomorrow for possible I&D. Review of Systems Review of Systems: All systems reviewed & are unremarkable except as noted in HPI and below Exam Narrative: * GENERAL: Alert and oriented x 3. No acute distress. * EYES: EOMI. No scleral icterus. PERRLA. * HEENT: Moist mucous membranes. * LUNGS: Clear to auscultation bilaterally. No accessory muscle use. * CARDIOVASCULAR: Regular rate and rhythm. No murmur. No JVD. S1-S2 * ABDOMEN: Soft, non tenderness and non-distended. No palpable masses. * EXTREMITIES: RUE with erythema, edema neurovascular intake * SKIN: No rashes or lesions. Skin warm, dry. * NEUROLOGIC: No focal neurological deficits. CN II-XII grossly intact * PSYCHIATRIC: Appropriate mood and affect. Good judgement and insight. Objective Data Vital Signs Vital Signs: Vital Signs - 24 hr 12/26/23 16:00 12/26/23 20:00 12/26/23 21:05 Temperature 98.8 F Pulse Rate 66 66 66 Respiratory Rate 18 18 Blood Pressure 144/91 H Pulse Oximetry 97 97 Oxygen Delivery Room Air Room Air 12/27/23 00:00 12/27/23 08:54 12/27/23 08:00 Temperature 98.0 F 97.6 F Pulse Rate 66 61 61 Respiratory Rate 17 16 Blood Pressure 136/88 123/69 Pulse Oximetry 99 97 Oxygen Delivery Room Air Room Air Intake/Output Intake/Output: Intake & Output 12/24/23 12/25/23 12/26/23 12/27/23 23:59 23:59 23:59 23:59 Intake Total 1050 3950 3885.0 680 Output Total 3300 1375 Balance 9023 182 1629.0 680 Meds/Results Medications: Active Medications Generic Name Dose Route Start Last Admin Trade Name Freq PRN Reason Stop Dose Admin Cyclobenzaprine HCl 10 mg 12/26/23 10:57 12/27/23 11:55 Cyclobenzaprine Hcl 10 Mg Tablet PO 10 mg Q8H PRN Administration Muscle Spasm Heparin Sodium (Porcine) 5,000 units 12/25/23 22:00 12/27/23 05:07 Heparin Sodium 5,000 Units/Ml Vial SUB-Q 5,000 units Q8HR JUSTA Administration Hydrochlorothiazide 25 mg 12/25/23 09:00 12/27/23 08:54 Hydrochlorothiazide 25 Mg Tablet PO 25 mg Q12HR JUSTA Administration Hydroxyzine Pamoate 25 mg 12/25/23 21:00 12/26/23 21:11 Hydroxyzine Pamoate 25 Mg Capsule PO 25 mg HS JUSTA Administration Clindamycin Phosphate 600 mg in 50 mls @ 100 mls/hr 12/25/23 06:00 12/27/23 06:05 Clindamycin 600 Mg/D5w 50 Ml IVPB Infused Q8HR JUSTA Infusion Cefazolin Sodium 2 gm in 50 mls @ 100 mls/hr 12/25/23 14:00 12/27/23 05:38 Ancef 2 Gm/Ns 50 Ml IVPB Infused Q8H JUSTA Infusion Ibuprofen 600 mg 12/25/23 13:05 12/27/23 08:53 Ibuprofen 600 Mg Tablet PO 600 mg Q6H PRN Administration Pain Rated 5 or Less Ketorolac Tromethamine 15 mg 12/24/23 22:33 12/27/23 11:55 Ketorolac 15 Mg/Ml Vial (*Bkc) IV PUSH 15 mg Q6H PRN Administration Pain Rated 6 or Greater Lisinopril 20 mg 12/25/23 09:00 12/27/23 08:54 Lisinopril 20 Mg Tablet PO 20 mg Q12HR JUSTA Administration Metoprolol Tartrate 25 mg 12/25/23 09:00 12/27/23 08:54 Metoprolol Tartrate 25 Mg Tablet PO 25 mg Q12HR JUSTA Administration Nicotine 1 patch 12/25/23 09:00 12/27/23 08:52 Nicotine (*Pbkc) 21 Mg Patch TRANSDERM 1 patch DAILY JUSTA Administration Buprenorphine- 1 tablet 12/26/23 17:20 12/27/23 08:55 Naloxone [Zubsolv] 8 XX 01/25/24 17:19 1 tablet .6/2.1 Mg Sublingual BID JUSTA Administration Tablet Ondansetron HCl 4 mg 12/24/23 22:33 12/25/23 05:21 Ondansetron Inj 4 Mg/2 Ml Vial IV PUSH 4 mg Q6H PRN Administration Nausea And Vomiting Prazosin HCl 2 mg 12/25/23 21:00 12/26/23 21:05 Prazosin Hcl 1 Mg Capsule PO 2 mg HS JUSTA Administration Radiology Results: ITS Impressions Upper Extremity CT 12/25/23 10:41 IMPRESSION: 1. Tenosynovitis in the first-third extensor compartments of the wrist. 2. Rim-enhancing fluid collection along the dorsal distal aspect of the extensor carpi radialis brevis and extensor carpi radialis longus muscles and myotendinous junctions, consistent with subacute hematoma versus abscess. Labs Labs: Laboratory Results - last 24 hr 12/27/23 06:30 WBC 4.4 L RBC 4.68 L Hgb 13.6 L Hct 39.9 L MCV 85.3 MCH 29.1 MCHC 34.1 RDW 12.3 Plt Count 163 MPV 9.4 Sodium 140 Potassium 3.5 Chloride 104 Carbon Dioxide 25 Anion Gap 11 BUN 12 Creatinine 1.06 Estim Creat Clear Calc 83 Estimated GFR > 60 Glucose 123 H Calculated Osmolality 290 Calcium 7.9 L Total Bilirubin 0.5 AST 16 ALT 26 Alkaline Phosphatase 40 L Total Protein 5.8 L Albumin 2.7 L Quality VTE Prophylaxis VTE prophylaxis: pharmacologic ordered -Patient's previous records reviewed on admission -ER notes reviewed in detail on admission -discussed all findings and current treatment plan with patient/Family/POA -Consultations reviewed for recommendations -Patient's disposition for safe discharge discussed with human services case manager Dictation performed by [employer] Flu[employer] direct speech recognition software, therefore training generalist variants and typographical errors may occur. Hospitalist MIPS Advance Care Plan I have confirmed that the patient's Advanced Care Plan is present, code status is documented, or surrogate decision maker is listed in patient medical record.: Yes Medication Reconciliation I have utilized all available resources to obtain, update and review the patients current medications (includes all prescriptions, OTC, herbals, cannabis, and nutritional supplements).: Yes The patient is not eligible for med reconciliation; the patient is in a emergent medical situation where delaying treatment would jeopardize the patients health.: No
[2023-12-27 16:00] VITALS: BP 140/88; PULSE 54; RESP 16; TEMP 36.3; O2SAT 100
[2023-12-27 20:00] VITALS: PULSE 65; RESP 16; O2SAT 100
[2023-12-27 21:06] VITALS: PULSE 65
[2023-12-27] MEDS: PRAZOSIN HCL 1 MG CAPSULE 2 MG PO (21:06)
[2023-12-27] MEDS: hydrOXYzine pamoate 25 MG CAPSULE PO (21:06)
[2023-12-28] VITALS: BP 149/93; PULSE 65; RESP 17; TEMP 36.8; O2SAT 99
[2023-12-28] MEDS: KETOROLAC 15 MG/ML VIAL (*BKC) IV PUSH ×3 (04:20→16:40)
[2023-12-28] MEDS: CYCLOBENZAPRINE HCL 10 MG TABLET PO ×2 (04:21→13:26)
[2023-12-28] MEDS: ceFAZolin 2 GM/NS 50 ML 2 GM/50 ML BAG IVPB ×2 (05:01→13:18)
[2023-12-28] MEDS: HEPARIN SODIUM 5,000 UNITS/ML VIAL 5000 UNITS SUB-Q ×2 (05:03→13:18)
[2023-12-28 05:10] LABS: Hematocrit 43.3 % (40.0-54.0); Mean Corpuscular HGB Conc 34.6 g/dL (32-36); Mean Corpuscular Hemoglobin 29.6 pg (27.0-31.0); Mean Corpuscular Volume 85.4 fL (78.0-102.0); Mean Platelet Volume 9.5 fl (8.7-11.0); Platelet Count Result 195 K/mm3 (150-420); Red Blood Count 5.07 M/mm3 (4.70-6.10); Red Cell Distribution Width 12.4 % (11.6-14.4); White Blood Count 5.4 K/mm3 (4.8-10.8)
[2023-12-28 05:27] LABS: Alanine Aminotransferase 20 U/L (16-63); Albumin Level 2.9 g/dL (3.4-5.0); Alkaline Phosphatase 41 U/L (46-116); Anion Gap 9 mmol/L (4-12); Aspartate Amino Transferase 16 U/L (15-37); Bilirubin,Total 0.5 mg/dL (0.00-1.00); Blood Urea Nitrogen 13 mg/dL (7-18); Calcium 8.3 mg/dL (8.5-10.1); Carbon Dioxide 27 mmol/L (21-32); Chloride 105 mmol/L (98-108); Estimated CRCL calculation 78 ml/min; Estimated Glomerular Filt Rate > 60; Glucose 86 mg/dL (70-99); Osmolality Calculated 291 mOsm/kg (285-295); Sodium 141 mmol/L (136-145); Total Protein 6.2 g/dL (6.4-8.2)
[2023-12-28] MEDS: CLINDAMYCIN 600 MG/D5W 50 ML 600 MG/50 ML PIGGYBACK 100 MG IVPB (05:30)
[2023-12-28 08:00] VITALS: BP 117/79; PULSE 60; RESP 16; TEMP 36.2; O2SAT 97
[2023-12-28] MEDS: IBUPROFEN 600 MG TABLET PO ×2 (10:00→16:36)
[2023-12-28] MEDS: NICOTINE (*PBKC) 21 MG PATCH 1 PATCH TRANSDERM (10:00)
[2023-12-28] MEDS: lisinopriL 20 MG TABLET PO (10:00)
[2023-12-28 10:01] VITALS: PULSE 60
[2023-12-28] MEDS: hydroCHLOROthiazide 25 MG TABLET PO (10:01)
[2023-12-28] MEDS: METOPROLOL TARTRATE 25 MG TABLET PO (10:01)
--- NOTE | 2023-12-28 11:17 | P.PNIM_ITS ---
Progress Note: A&P Assessment and Plan (1) Cellulitis and abscess of hand: Code(s): L03.119 - Cellulitis of unspecified part of limb; L02.519 - Cutaneous abscess of unspecified hand Status: Acute Assessment and Plan: * RUE post surgical repair of tendon release * Blood cultures Pending * Wound culture MSSA per [facility] * Imaging: CT shows: IMPRESSION: 1. Tenosynovitis in the first-third extensor compartments of the wrist. 2. Rim-enhancing fluid collection along the dorsal distal aspect of the extensor carpi radialis brevis and extensor carpi radialis longus muscles and myotendinous junctions, consistent with subacute hematoma versus abscess. * Ancef and clindamycin * MRSA negative * Pain control does not want narcotics * consulted his surgeon Dr. Starkey at the [facility] * Will continue with IV ABX if no improvement may need I&D * CRP elevated * Neurovascular checks 12/26/23: * Blood cultures NGTD * Call Dr Starkey Thursday for update * normal WBC * Afebrile * intermittent in improvement and then worsening of erythema and swelling * elevate hand encourage limited use 12/28/2023 * swelling improving * update called to Dr starkey in Clinic will wait to determine if he needs I&D * MSSA can stop clindamycin (2) HTN (hypertension): Code(s): I10 - Essential (primary) hypertension Status: Acute Assessment and Plan: * Stable * resumed home medications (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, in remission Status: Acute Assessment and Plan: * Resumed Zubsolv * Currently requesting no narcotics for pain * been in remission 10 years previous IV drug user (4) Polycystic kidney disease: Code(s): Q61.3 - Polycystic kidney, unspecified Status: Acute Assessment and Plan: * Monitor kidney function * de-escalate ABX for kidney protection * avoid nephrotoxic medications (5) ABEL (acute kidney injury): Code(s): N17.9 - Acute kidney failure, unspecified Status: Acute Assessment and Plan: * Cr 1.73 POA-1.4 12/24 * avoid nephrotoxic medications * pharmacy to dose ABX * monitor renal function (6) Hepatitis C: Qualifiers: Hepatic coma status: without hepatic coma Viral hepatitis chronicity: chronic Qualified Code(s): B18.2 - Chronic viral hepatitis C Code(s): B19.20 - Unspecified viral hepatitis C without hepatic coma Status: Acute Assessment and Plan: * Treated * monitor liver function Plan Code Status: Full code DVT prophylaxis: heparin Disposition: Patient continues admission for cellulitis of RUE will continue with IV ABX spoke with his Surgeon Dr. Starkey at [facility] about CT findings if no improvement with IV ABX may need I&D. Dr. Starkey called with update in clinic at that time. Waiting on Surgeon to determine if patient needs I&D. Time Spent With Patient Time with patient: 15 - 25 minutes Subjective Date/time seen: 12/28/23 11:17 Interval history: Patient is a 38-year-old male admitted for right upper extremity cellulitis post surgical repair for tendon release. 12/28/23 Swelling has improved today no events overnight but still having difficulty moving his wrist also reported body aches and chills overnight remained afebrile and normal wbc. Call Dr. Starkey office with update waiting electrical electronics engineer back when available. Review of Systems Review of Systems: All systems reviewed & are unremarkable except as noted in HPI and below Exam Narrative: * GENERAL: Alert and oriented x 3. No acute distress. * EYES: EOMI. No scleral icterus. PERRLA. * HEENT: Moist mucous membranes. * LUNGS: Clear to auscultation bilaterally. No accessory muscle use. * CARDIOVASCULAR: Regular rate and rhythm. No murmur. No JVD. S1-S2 * ABDOMEN: Soft, non tenderness and non-distended. No palpable masses. * EXTREMITIES: RUE with erythema, edema neurovascular intake * SKIN: No rashes or lesions. Skin warm, dry. * NEUROLOGIC: No focal neurological deficits. CN II-XII grossly intact * PSYCHIATRIC: Appropriate mood and affect. Good judgement and insight. Objective Data Vital Signs Vital Signs: Vital Signs - 24 hr 12/27/23 16:00 12/27/23 21:06 12/27/23 20:00 Temperature 97.3 F L Pulse Rate 54 L 65 65 Respiratory Rate 16 16 Blood Pressure 140/88 Pulse Oximetry 100 100 Oxygen Delivery Room Air Room Air 12/28/23 00:00 12/28/23 10:01 Temperature 98.3 F Pulse Rate 65 60 Respiratory Rate 17 Blood Pressure 149/93 H Pulse Oximetry 99 Oxygen Delivery Room Air Intake/Output Intake/Output: Intake & Output 12/25/23 12/26/23 12/27/23 12/28/23 23:59 23:59 23:59 23:59 Intake Total 3950 3885.0 1780 350 Output Total 3300 1375 500 Balance 650 2510.0 1280 350 Meds/Results Medications: Active Medications Generic Name Dose Route Start Last Admin Trade Name Freq PRN Reason Stop Dose Admin Cyclobenzaprine HCl 10 mg 12/26/23 10:57 12/28/23 04:21 Cyclobenzaprine Hcl 10 Mg Tablet PO 10 mg Q8H PRN Administration Muscle Spasm Heparin Sodium (Porcine) 5,000 units 12/25/23 22:00 12/28/23 05:03 Heparin Sodium 5,000 Units/Ml Vial SUB-Q 5,000 units Q8HR JUSTA Administration Hydrochlorothiazide 25 mg 12/25/23 09:00 12/28/23 10:01 Hydrochlorothiazide 25 Mg Tablet PO 25 mg Q12HR JUSTA Administration Hydroxyzine Pamoate 25 mg 12/25/23 21:00 12/27/23 21:06 Hydroxyzine Pamoate 25 Mg Capsule PO 25 mg HS JUSTA Administration Clindamycin Phosphate 600 mg in 50 mls @ 100 mls/hr 12/25/23 06:00 12/28/23 06:00 Clindamycin 600 Mg/D5w 50 Ml IVPB Infused Q8HR JUSTA Infusion Cefazolin Sodium 2 gm in 50 mls @ 100 mls/hr 12/25/23 14:00 12/28/23 05:31 Ancef 2 Gm/Ns 50 Ml IVPB Infused Q8H JUSTA Infusion Ibuprofen 600 mg 12/25/23 13:05 12/28/23 10:00 Ibuprofen 600 Mg Tablet PO 600 mg Q6H PRN Administration Pain Rated 5 or Less Ketorolac Tromethamine 15 mg 12/24/23 22:33 12/28/23 10:54 Ketorolac 15 Mg/Ml Vial (*Bkc) IV PUSH 15 mg Q6H PRN Administration Pain Rated 6 or Greater Lisinopril 20 mg 12/25/23 09:00 12/28/23 10:00 Lisinopril 20 Mg Tablet PO 20 mg Q12HR JUSTA Administration Metoprolol Tartrate 25 mg 12/25/23 09:00 12/28/23 10:01 Metoprolol Tartrate 25 Mg Tablet PO 25 mg Q12HR JUSTA Administration Nicotine 1 patch 12/25/23 09:00 12/28/23 10:00 Nicotine (*Pbkc) 21 Mg Patch TRANSDERM 1 patch DAILY JUSTA Administration Buprenorphine- 1 tablet 12/26/23 17:20 12/27/23 16:49 Naloxone [Zubsolv] 8 XX 01/25/24 17:19 1 tablet .6/2.1 Mg Sublingual BID JUSTA Administration Tablet Ondansetron HCl 4 mg 12/24/23 22:33 12/25/23 05:21 Ondansetron Inj 4 Mg/2 Ml Vial IV PUSH 4 mg Q6H PRN Administration Nausea And Vomiting Prazosin HCl 2 mg 12/25/23 21:00 12/27/23 21:06 Prazosin Hcl 1 Mg Capsule PO 2 mg HS JUSTA Administration Radiology Results: ITS Impressions Upper Extremity CT 12/25/23 10:41 IMPRESSION: 1. Tenosynovitis in the first-third extensor compartments of the wrist. 2. Rim-enhancing fluid collection along the dorsal distal aspect of the extensor carpi radialis brevis and extensor carpi radialis longus muscles and m yotendinous junctions, consistent with subacute hematoma versus abscess. Labs Labs: Laboratory Results - last 24 hr 12/28/23 04:43 WBC 5.4 RBC 5.07 Hgb 15.0 Hct 43.3 MCV 85.4 MCH 29.6 MCHC 34.6 RDW 12.4 Plt Count 195 MPV 9.5 Sodium 141 Potassium 4.0 Chloride 105 Carbon Dioxide 27 Anion Gap 9 BUN 13 Creatinine 1.13 Estim Creat Clear Calc 78 Estimated GFR > 60 Glucose 86 Calculated Osmolality 291 Calcium 8.3 L Total Bilirubin 0.5 AST 16 ALT 20 Alkaline Phosphatase 41 L Total Protein 6.2 L Albumin 2.9 L Quality VTE Prophylaxis VTE prophylaxis: pharmacologic ordered -Patient's previous records reviewed on admission -ER notes reviewed in detail on admission -discussed all findings and current treatment plan with patient/Family/POA -Consultations reviewed for recommendations -Patient's disposition for safe discharge discussed with business case analyst Dictation performed by [employer] direct speech recognition software, therefore national recruiter variants and typographical errors may occur. Hospitalist MIPS Advance Care Plan I have confirmed that the patient's Advanced Care Plan is present, code status is documented, or surrogate decision maker is listed in patient medical record.: Yes Medication Reconciliation I have utilized all available resources to obtain, update and review the patients current medications (includes all prescriptions, OTC, herbals, cannabis, and nutritional supplements).: Yes The patient is not eligible for med reconciliation; the patient is in a emergent medical situation where delaying treatment would jeopardize the patients health.: No
[2023-12-28] MEDS: DOXYCYCLINE HYCLATE 100 MG TABLET PO (13:18)
[2023-12-28 16:00] VITALS: BP 140/84; PULSE 85; RESP 18; TEMP 36.9; O2SAT 97
--- NOTE | 2023-12-28 16:11 | PM.TDS ---
Transfer Discharge Sum: Prov Provider Date of admission: 12/26/23 13:16 Primary care physician: Jessica Hannah, TRAIN CONTROL TECHNICIAN Admitting clinician: Jorge Landeros MD Attending physician on admission: Galo Landeros Attending physician on discharge: Galo Landeros Discharging clinician: Marcelle Shaffer Anticipated date of transfer: 12/28/23 Receiving physician/facility: Dr. Starkey at [facility] in [place] DS: Admitting Diagnosis Discharge Date 12/28/2023 Admitting Diagnosis Cellulitis with abscess of RUE DS: Discharge Diagnosis Discharge Diagnosis (1) ABEL (acute kidney injury): Code(s): N17.9 - Acute kidney failure, unspecified Status: Acute (2) Drug addiction in remission: Code(s): F19.21 - Other psychoactive substance dependence, in remission Status: Acute (3) Cellulitis and abscess of hand: Code(s): L03.119 - Cellulitis of unspecified part of limb; L02.519 - Cutaneous abscess of unspecified hand Status: Acute (4) Polycystic kidney disease: Code(s): Q61.3 - Polycystic kidney, unspecified Status: Acute (5) HTN (hypertension): Code(s): I10 - Essential (primary) hypertension Status: Acute (6) Lower abdominal pain: Code(s): R10.30 - Lower abdominal pain, unspecified Status: Acute (7) Hepatitis C: Qualifiers: Hepatic coma status: without hepatic coma Viral hepatitis chronicity: chronic Qualified Code(s): B18.2 - Chronic viral hepatitis C Code(s): B19.20 - Unspecified viral hepatitis C without hepatic coma Status: Acute Plan Disposition: Transfer to [facility] Transfer Discharge Sum: Med Medications Active and Home Medications: Home Medications testosterone cypionate 200 mg/mL intramuscular oil 200 mg subcut [id number] 01/18/19 [History Confirmed 12/24/23] buprenorphine 8.6 mg-naloxone 2.1 mg sublingual tablet (Zubsolv) 1 tablet sublingual DAILY 12/24/23 [History Confirmed 12/24/23] cephalexin 500 mg capsule 500 mg PO QID 12/24/23 [History Confirmed 12/24/23] hydroxyzine pamoate 25 mg capsule 25 mg PO HS 12/24/23 [History Confirmed 12/24/23] lisinopril 20 mg-hydrochlorothiazide 25 mg tablet 1 tablet PO BID 12/24/23 [History Confirmed 12/24/23] metoprolol tartrate 25 mg tablet 25 mg PO BID 12/24/23 [History Confirmed 12/24/23] prazosin 2 mg capsule 2 mg PO HS 12/24/23 [History Confirmed 12/24/23] sulfamethoxazole 800 mg-trimethoprim 160 mg tablet 1 tablet PO Q12H 12/24/23 [History Confirmed 12/24/23] Active Medications Cyclobenzaprine HCl (Cyclobenzaprine Hcl 10 Mg Tablet) 10 mg PO Q8H PRN PRN Reason: Muscle Spasm Last Admin: 12/28/23 13:26 Dose: 10 mg Doxycycline Hyclate (Doxycycline Hyclate 100 Mg Tablet) 100 mg PO Q12HR [facility] Last Admin: 12/28/23 13:18 Dose: 100 mg Heparin Sodium (Porcine) (Heparin Sodium 5,000 Units/Ml Vial) 5,000 units SUB-Q Q8HR [facility] Last Admin: 12/28/23 13:18 Dose: 5,000 units Hydrochlorothiazide (Hydrochlorothiazide 25 Mg Tablet) 25 mg PO Q12HR [facility] Last Admin: 12/28/23 10:01 Dose: 25 mg Hydroxyzine Pamoate (Hydroxyzine Pamoate 25 Mg Capsule) 25 mg PO HS [facility] Last Admin: 12/27/23 21:06 Dose: 25 mg Cefazolin Sodium (Ancef 2 Gm/Ns 50 Ml) 2 gm in 50 mls @ 100 mls/hr IVPB Q8H [facility] Last Admin: 12/28/23 13:18 Dose: 100 mls/hr Ibuprofen (Ibuprofen 600 Mg Tablet) 600 mg PO Q6H PRN PRN Reason: Pain Rated 5 or Less Last Admin: 12/28/23 10:00 Dose: 600 mg Ketorolac Tromethamine (Ketorolac 15 Mg/Ml Vial (*Bkc)) 15 mg IV PUSH Q6H PRN PRN Reason: Pain Rated 6 or Greater Last Admin: 12/28/23 10:54 Dose: 15 mg Lisinopril (Lisinopril 20 Mg Tablet) 20 mg PO Q12HR [facility] Last Admin: 12/28/23 10:00 Dose: 20 mg Metoprolol Tartrate (Metoprolol Tartrate 25 Mg Tablet) 25 mg PO Q12HR [facility] Last Admin: 12/28/23 10:01 Dose: 25 mg Nicotine (Nicotine (*Pbkc) 21 Mg Patch) 1 patch TRANSDERM DAILY [facility] Last Admin: 12/28/23 10:00 Dose: 1 patch Buprenorphine- Naloxone [Zubsolv] 8 .6/2.1 Mg Sublingual Tablet 1 tablet XX BID [facility] Stop: 01/25/24 17:19 Last Admin: 12/28/23 13:37 Dose: Not Given Ondansetron HCl (Ondansetron Inj 4 Mg/2 Ml Vial) 4 mg IV PUSH Q6H PRN PRN Reason: Nausea And Vomiting Last Admin: 12/25/23 05:21 Dose: 4 mg Prazosin HCl (Prazosin Hcl 1 Mg Capsule) 2 mg PO HS [facility] Last Admin: 12/27/23 21:06 Dose: 2 mg Transfer Discharge Sum: Hosp Hospital Course Hospital course: Rt upper extremity pain/swelling/redness Narrative: Patient was a 38-year old male who presented to the ED with complaints of worsening pain, swelling, and redness to his right upper extremity after recent surgical repair for tendon release surgery. He had been seen by his surgeon Dr. Starkey 2 days prior with attempt to aspirate the area as reported there was no drainable abscess at that time. Patient was told if symptoms did not improve to go to the emergency department for IV ABX. Patient came to the ED 2 days after with worsening swelling, erythema, and pain to the RUE. Patient denied any CP, SOB, N/V, fever or chills. In the ED he had unremarkable labs no leukocytosis and vitals stable. He was admitted for treatment with IV antibiotics. The ED started patient on clindymyocin IV and he had mild improvement to his erythema but continued swelling. Neurovascular intake Following morning I ordered a CT with contrast for further evaluation that did show tenosynovitis in the first-third extensor compartments of the wrist.and Rim-enhancing fluid collection along the dorsal distal aspect of the extensor carpi radialis brevis and extensor carpi radialis longus muscles and myotendinous junctions, consistent with subacute hematoma versus abscess. I did speak with his surgeon nurse at the [facility] with the results they were able to tell me his culture came back with MSSA. Dr. Starkey requested we continue with IV antibiotics and if no improvement to call for follow-up and possible need for I&D. Patient continues to erythema and swelling in with antibiotic coverage updated Dr. Starkey and it was agreed that patient would need a washout of site initiated a transfer to [facility] patient was transferred via ambulance. I continued his IV Ancef initial transition to oral doxycycline per surgeon NPO at midnight for washout in the morning. Time Spent with Patient Time attestation: Total time spent providing and/or coordinating transfer services: Total time spent: Greater than 30 minutes Exam Narrative: GENERAL: Alert and oriented x 3. No acute distress. EYES: EOMI. No scleral icterus. PERRLA. HEENT: Moist mucous membranes. LUNGS: Clear to auscultation bilaterally. No accessory muscle use. CARDIOVASCULAR: Regular rate and rhythm. No murmur. No JVD. S1-S2 ABDOMEN: Soft, non tenderness and non-distended. No palpable masses. EXTREMITIES: RUE with erythema, edema neurovascular intake SKIN: No rashes or lesions. Skin warm, dry. NEUROLOGIC: No focal neurological deficits. CN II-XII grossly intact PSYCHIATRIC: Appropriate mood and affect. Good judgement and insight. DS: Data Data Completed and Pending Labs on day of discharge: Labs from last 24 hours 12/28/23 04:43 WBC 5.4 RBC 5.07 Hgb 15.0 Hct 43.3 MCV 85.4 MCH 29.6 MCHC 34.6 RDW 12.4 Plt Count 195 MPV 9.5 Sodium 141 Potassium 4.0 Chloride 105 Carbon Dioxide 27 Anion Gap 9 BUN 13 Creatinine 1.13 Estim Creat Clear Calc 78 Estimated GFR > 60 Glucose 86 Calculated Osmolality 291 Calcium 8.3 L Total Bilirubin 0.5 AST 16 ALT 20 Alkaline Phosphatase 41 L Total Protein 6.2 L Albumin 2.9 L Preliminary micro results at discharge 12/24/23 22:02 Blood Culture - Preliminary Blood 12/24/23 22:02 Blood Culture - Preliminary Blood Imaging Radiologist's impression: Radiology Results: ITS Impressions Upper Extremity CT 12/25/23 10:41 IMPRESSION: 1. Tenosynovitis in the first-third extensor compartments of the wrist. 2. Rim-enhancing fluid collection along the dorsal distal aspect of the extensor carpi radialis brevis and extensor carpi radialis longus muscles and myotendinous junctions, consistent with subacute hematoma versus abscess. Additional Comments Additional comments: -Patient's previous records reviewed on admission -ER notes reviewed in detail on admission -discussed all findings and current treatment plan with patient/Family/POA -Consultations reviewed for recommendations -Patient's disposition for safe discharge discussed with case management rn Dictation performed by [employer] direct speech recognition software, therefore diesel locomotive firer/fireman variants and typographical errors may occur.
--- NOTE | 2023-12-28 18:10 | PC.NURSE ---
Patient transferring to [facility] per [facility]. Patient ambulated to [facility], all belongings sent with patient.
== END 2023-12-28 18:10 | disposition short-term general hospital (02) | DRG 603 ==
LOC: CHSED 22:12 → CHS2ND 22:41
PROVIDERS: Admitting Provider Internal Medicine; Emergency Provider Emergency Medicine; PCP Nurse Practitioner; Visit Provider Nurse Practitioner Family
DX: L03.113 Cellulitis of right upper limb (principal); Q61.3 Polycystic kidney, unspecified; N17.9 Acute kidney failure, unspecified; L02.413 Cutaneous abscess of right upper limb; B95.61 Methicillin susceptible Staphylococcus aureus infection as the cause of diseases classified elsewhere; B19.20 Unspecified viral hepatitis C without hepatic coma; I10 Essential (primary) hypertension; F17.210 Nicotine dependence, cigarettes, uncomplicated; F19.21 Other psychoactive substance dependence, in remission; Q67.6 Pectus excavatum; Z98.890 Other specified postprocedural states; Z87.442 Personal history of urinary calculi
CPT/HCPCS: 36415; 73201; 80053; 83605; 85025; 85027; 85055; 85652; 86140; 87040; 87641; 90471; 90715; 96361; 96365; 96366; 96367; 96375; 96376; 99285; A9270; G0378; J0690; J1644; J1885; J2405; J7030; Q9967